=== PATIENT | female | born 1990 | race Hispanic/Latino ===

== ENCOUNTER 2018-01-27 05:51 | Inpatient (IN) | payer MEDICAID, OTHER, SELFPAY ==
[2018-01-27] MEDS ORDERED: NS / Oxytocin 40 units/1000ml 1,000 ML ONE (07:04)
[2018-01-27] MEDS ORDERED: Adacel (T-DAP) 0.5 ML VIAL IM ONE (07:36)
[2018-01-27] MEDS ORDERED: Bisacodyl 10 MG SUPP PR PRN (07:36)
[2018-01-27] MEDS ORDERED: Lanolin Ointment 7 GM TUBE TOP PRN (07:36)
[2018-01-27] MEDS ORDERED: Benzocaine/Menthol 20-0.5% 60 ML CAN TOP PRN (07:36)
[2018-01-27] MEDS ORDERED: Milk Of Magnesia 30 ML UDCUP PO PRN (07:36)
[2018-01-27] MEDS ORDERED: Ondansetron HCl/PF 4 MG/2 ML Vial IVP PRN ×2 (07:36)
[2018-01-27] MEDS ORDERED: NS / Oxytocin 40 units/1000ml 1,000 ML IV SCH (07:45)
[2018-01-27 11:03] LABS: Hemoglobin 13.9 g/dL (12.0-16.0); Mean Corpuscular Hemoglobin 32.2 pg (27.0-31.0); Mean Corpuscular Volume 94.5 fL (78.0-98.0); Mean Platelet Volume 11.2 fL (7.4-10.4); Platelet Count 106 thou/uL (130-400); RBC Distribution Width 11.7 % (11.5-14.5); Red Blood Cell (RBC) Count 4.32 mill/uL (4.20-5.40); White Blood Cell (WBC) Count 13.8 thou/uL (4.8-10.8)
[2018-01-27 11:15] LABS: HBSAg Index 0.18 S/CO (0-0.99); HIV (1/2) Antibody/Antigen Non-Reactive (NonReactive); HIV 1/2 INDEX 0.17 S/CO (<1.00); Hep B Surf Ag Non-Reactive S/CO (NonReactive)
[2018-01-27] MEDS: Ferrous Sulfate 325 MG TAB PO SCH ×2 (12:00→16:25)
[2018-01-27] MEDS: Prenatal Vitamin 1 TAB PO SCH (12:06)
[2018-01-27] MEDS: Docusate Calcium (SURFAK) 240 MG CAP PO SCH ×2 (12:06→21:27)
[2018-01-27] MEDS: Ibuprofen 800 MG TAB PO SCH ×2 (13:50→21:27)
[2018-01-27 14:31] LABS: Syphilis Antibody Nonreactive (Nonreactive); Syphilis Antibody Index 0.05 S/CO (<1.00 Non-Reactive)
[2018-01-28] MEDS: Ibuprofen 800 MG TAB PO SCH (06:13)
[2018-01-28 06:28] LABS: Hemoglobin 12.7 g/dL (12.0-16.0); Mean Corpuscular HGB CONC 34.1 g/dL (32.0-36.0); Mean Corpuscular Hemoglobin 32.9 pg (27.0-31.0); Mean Corpuscular Volume 96.3 fL (78.0-98.0); Mean Platelet Volume 10.8 fL (7.4-10.4); Platelet Count 93 thou/uL (130-400); RBC Distribution Width 11.9 % (11.5-14.5); Red Blood Cell (RBC) Count 3.85 mill/uL (4.20-5.40); White Blood Cell (WBC) Count 7.8 thou/uL (4.8-10.8)
[2018-01-28 08:35] VITALS: BP 119/59; TEMP 97.9
[2018-01-28] MEDS: Docusate Calcium (SURFAK) 240 MG CAP PO SCH (09:22)
[2018-01-28] MEDS: Prenatal Vitamin 1 TAB PO SCH (09:22)
[2018-01-28] MEDS: Ferrous Sulfate 325 MG TAB PO SCH (09:23)
== END 2018-01-28 14:00 | disposition home or self-care (01) | DRG 776 ==
LOC: L&D 05:51 → 3SW 11:09
PROVIDERS: ADMIT Family Medicine; ATTEND Family Medicine
DX: Z39.0 Encounter for care and examination of mother immediately after delivery (principal)
CPT/HCPCS: 36415; 85027; 86780; 86850; 86900; 86901; 87340; 87389